=== PATIENT | female | born 2005 | race Caucasian/White ===

== ENCOUNTER 2024-06-13 00:29 | Emergency (ER) | payer OTHER ==
[2024-06-13] MEDS ORDERED: Lidocaine 1% (PF) 30 ML VIAL ONE (01:10)
[2024-06-13] MEDS ORDERED: Bacitracin 1 PK ONE (01:11)
[2024-06-13] MEDS ORDERED: Lidocaine/Transparent Dressing 1 EACH KIT ONE (02:23)
[2024-06-13] MEDS ORDERED: diphenhydrAMINE 25 MG CAP ONE (03:02)
[2024-06-13] MEDS ORDERED: Sulfameth/Trimethoprim DS 800-160mg TAB ONE (04:10)
[2024-06-13] MEDS ORDERED: Amoxicillin/Potassium Clav 875 MG TAB ONE (04:12)
== END 2024-06-13 04:30 | disposition home or self-care (01) ==
LOC: CSHERS 00:29
DX: S01.551A Open bite of lip, initial encounter (principal); S01.25XA Open bite of nose, initial encounter; W54.0XXA Bitten by dog, initial encounter
CPT/HCPCS: 12011; 99283

== ENCOUNTER 2025-02-13 17:30 | Inpatient (IN) | payer OTHER ==
[2025-02-13] MEDS ORDERED: Ondansetron PF 4 MG/2 ML Vial ONE (17:52)
[2025-02-13 18:22] LABS: #Basophils 0.06 10x3/uL (0.0-0.2); #Eosinophils 0.04 10x3/uL (0.0-0.5); #Monocytes 0.90 10x3/uL (0.0-1.1); #Neutrophils 6.25 10x3/uL (1.5-8.4); %Basophils 0.6 % (0.0-2.0); %Eosinophils 0.4 % (0.0-6.0); %Lymphocytes 26.2 % (18.0-47.0); %Monocytes 9.1 % (0.0-10.0); %Neutrophils 63.2 % (40.0-75.0); Hematocrit 35.9 % (34.9-44.5); Hemoglobin 11.3 g/dL (12.0-15.5); Mean Corpuscular Hemoglobin 24.7 pg (27.0-33.0); Mean Corpuscular Volume 78.4 fL (81.6-98.3); Platelet Count 486 10x3/uL (150-450); Red Blood Cell (RBC) Count 4.58 10x6/uL (3.90-5.03); White Blood Cell (WBC) Count 9.89 10x3/uL (3.5-10.5)
[2025-02-13 18:30] LABS: ALT (SGPT) 12 U/L (Less than 34); AST (SGOT) 17 U/L (11-34); Albumin 4.1 g/dL (3.1-4.5); Alkaline Phosphatase 77 U/L (40-100); Anion Gap 21 mmol/L (10-20); BUN (Urea Nitrogen) 11 mg/dL (7.0-18.7); Bilirubin, Total 1.2 mg/dL (0.3-1.2); Calc. Creatinine Clearance 0 mL/min (70-130); Calcium 9.0 mg/dL (7.8-10.44); Carbon Dioxide 15 mmol/L (22-29); Chloride 107 mmol/L (98-107); Globulin 3.7 g/dL (2.4-3.5); Glucose 120 mg/dL (70-105); Potassium 3.3 mmol/L (3.5-5.1); Sodium 140 mmol/L (136-145)
[2025-02-13 18:31] LABS: Acetaminophen 118 mcg/mL (Less than 10); Lipase 26 U/L (8-78); Magnesium 1.7 mg/dL (1.7-2.2); Salicylate Less than 8.0 mg/dL (Less than 8.0)
[2025-02-13 18:57] LABS: Cocaine Metabolite Screen Negative (Negative); Glucose, Urine (Dipstick) Negative (Negative); Leukocyte Negative (Negative); Protein, Urine (Dipstick) 30 mg/dL (Neg-Trace); Specific Gravity, Urine 1.020 (1.005-1.030); THC/Cannabinoid Screen Negative (Negative); Tricyclic Screen Negative (Negative)
[2025-02-13 19:04] LABS: CAUTI Indications for Culture Pelvic or flank pain; RBC/HPF 0-3 HPF (0-3); WBC/HPF 0-3 HPF (0-3)
[2025-02-13 19:05] LABS: Bacteria/HPF 2+ HPF (None Seen); Mucous/LPF 1+ LPF (<2+)
[2025-02-13 19:07] LABS: Urine Culture Reflex No No
[2025-02-13] MEDS ORDERED: Acetylcysteine 20% 200 MG/ML 30 ML VIAL ONE ×2 (19:20→19:21)
[2025-02-13 19:35] LABS: INR-International Normal Ratio 1.0; Prothrombin Time 11.4 sec (9.5-12.1)
[2025-02-13 19:42] LABS: PTT 21.3 sec (22.0-33.0)
[2025-02-13 19:50] LABS: Actual Bicarbonate (HCO3v) 18.2 mEq/L (22-28); Analyzer IN Cardio CS ER; Base Excess -5.9 mEq/L (-2 - +2); Calcium, Ionized (venous) 1.09 mmol/L (1.16-1.32); Chloride (VBG) 106 mmol/L (98-106); Critical Notified By: CP.PH; Hematocrit-VBG 36 % (36.0-47.0); Hemoglobin (Hb) 12.3 g/dL (11.7-15.5); Potassium (VBG) 3.76 mmol/L (3.70-5.30); Puncture Site Other Site; RapidComm Collect By LAB.CMJ; Sodium 141 mmol/L (133-146)
[2025-02-13] MEDS ORDERED: Calcium Carbonate 500 MG ChewTAB PO PRN (19:55)
[2025-02-13] MEDS ORDERED: Senokot S 8.6-50 MG TAB PO PRN (19:55)
[2025-02-13] MEDS ORDERED: Guaifenesin DM 100-10/5 ML UDCUP PO PRN (19:55)
[2025-02-13 20:21] LABS: Acetaminophen 119 mcg/mL (Less than 10)
[2025-02-13 20:40] LABS: Pregnancy Test - Urine (BHCG) Negative (Negative); Pregu Control Background? CLEAR/WHITE (CLR/WHITE); Pregu Control Bar Appear? YES (CONTROL BAR)
[2025-02-13 21:09] VITALS: BMI 29.7
[2025-02-13] MEDS: Acetylcysteine 20% (200mg/mL) 12,000 MG in Dextrose 5% in Water 200 ML IV SCH (21:10)
[2025-02-13] MEDS: Ondansetron PF 4 MG/2 ML Vial IVP PRN (22:00)
[2025-02-13] MEDS: Famotidine/PF 20 mg/2ml Vial SLOW IVP SCH (22:00)
[2025-02-13] MEDS: Magnesium 2 GM/50 ML(in water) 2 GM in Premix 1 BAG IVPB SCH (22:01)
[2025-02-13] MEDS: Melatonin 3 MG TAB PO PRN (22:02)
[2025-02-13] MEDS: Acetylcysteine 20% (200mg/mL) 3,800 MG in Dextrose 5% in Water 500 ML IV SCH (23:00)
[2025-02-13 23:01] LABS: ALT (SGPT) 10 U/L (Less than 34); AST (SGOT) 17 U/L (11-34); Acetaminophen 70 mcg/mL (Less than 10); Albumin 3.7 g/dL (3.1-4.5); Alkaline Phosphatase 58 U/L (40-100); Anion Gap 8 mmol/L (10-20); BUN (Urea Nitrogen) 9 mg/dL (7.0-18.7); Bilirubin, Total 0.7 mg/dL (0.3-1.2); Calc. Creatinine Clearance 177 mL/min (70-130); Calcium 7.8 mg/dL (7.8-10.44); Carbon Dioxide 18 mmol/L (22-29); Chloride 116 mmol/L (98-107); Globulin 3.3 g/dL (2.4-3.5); Glucose 125 mg/dL (70-105); Magnesium 1.6 mg/dL (1.7-2.2); Potassium 4.0 mmol/L (3.5-5.1); Sodium 138 mmol/L (136-145)
[2025-02-14] MEDS: Acetylcysteine 20% (200mg/mL) 7,600 MG in Dextrose 5% in Water 1,000 ML IV SCH (03:00)
[2025-02-14 05:01] LABS: #Basophils 0.03 10x3/uL (0.0-0.2); #Eosinophils Less than 0.03 10x3/uL (0.0-0.5); #Monocytes 0.80 10x3/uL (0.0-1.1); #Neutrophils 5.50 10x3/uL (1.5-8.4); %Basophils 0.4 % (0.0-2.0); %Eosinophils 0.2 % (0.0-6.0); %Lymphocytes 24.5 % (18.0-47.0); %Monocytes 9.4 % (0.0-10.0); %Neutrophils 64.8 % (40.0-75.0); Hematocrit 34.1 % (34.9-44.5); Hemoglobin 10.5 g/dL (12.0-15.5); Mean Corpuscular Hemoglobin 24.4 pg (27.0-33.0); Mean Corpuscular Volume 79.1 fL (81.6-98.3); Platelet Count 381 10x3/uL (150-450); Red Blood Cell (RBC) Count 4.31 10x6/uL (3.90-5.03); White Blood Cell (WBC) Count 8.49 10x3/uL (3.5-10.5)
[2025-02-14 05:17] LABS: INR-International Normal Ratio 1.1; PTT 25.0 sec (22.0-33.0); Prothrombin Time 12.4 sec (9.5-12.1)
[2025-02-14 05:22] LABS: ALT (SGPT) 9 U/L (Less than 34); AST (SGOT) 15 U/L (11-34); Acetaminophen 12 mcg/mL (Less than 10); Albumin 3.3 g/dL (3.1-4.5); Alkaline Phosphatase 51 U/L (40-100); Anion Gap 11 mmol/L (10-20); BUN (Urea Nitrogen) 6 mg/dL (7.0-18.7); Bilirubin, Total 0.9 mg/dL (0.3-1.2); CK (CPK) 87 U/L (29-168); Calc. Creatinine Clearance 180 mL/min (70-130); Calcium 7.8 mg/dL (7.8-10.44); Carbon Dioxide 19 mmol/L (22-29); Chloride 109 mmol/L (98-107); Globulin 3.1 g/dL (2.4-3.5); Glucose 126 mg/dL (70-105); Magnesium 2.4 mg/dL (1.7-2.2); Potassium 3.6 mmol/L (3.5-5.1); Sodium 135 mmol/L (136-145)
[2025-02-14] MEDS: Potassium Phosphate 30 MMOL in Sodium Chloride 0.9% 250 ML 250 ML IVPB SCH (08:41)
[2025-02-14] MEDS: Folic Acid 1 MG TAB PO SCH (08:41)
[2025-02-14 16:57] LABS: PT - Undiluted 15.7 sec (12.0-14.7)
[2025-02-14 16:58] LABS: PT 1:1 37C-90 min. Incubation 20.0 sec (12.0-14.7); PTT - Undiluted 28.7 sec (22.9-36.1); PTT 1:1 37C/90 MIN Incubation 38.6 sec (22.9-36.1)
[2025-02-14 19:05] LABS: INR-International Normal Ratio 1.1; Prothrombin Time 11.9 sec (9.5-12.1)
[2025-02-14 19:07] LABS: ALT (SGPT) 8 U/L (Less than 34); AST (SGOT) 17 U/L (11-34); Acetaminophen Less than 10 mcg/mL (Less than 10)
[2025-02-15 06:20] LABS: ALT (SGPT) 8 U/L (Less than 34); AST (SGOT) 12 U/L (11-34); Albumin 3.7 g/dL (3.1-4.5); Alkaline Phosphatase 69 U/L (40-100); Anion Gap 10 mmol/L (10-20); BUN (Urea Nitrogen) 8 mg/dL (7.0-18.7); Bilirubin, Total 0.6 mg/dL (0.3-1.2); Calc. Creatinine Clearance 151 mL/min (70-130); Calcium 8.6 mg/dL (7.8-10.44); Carbon Dioxide 23 mmol/L (22-29); Chloride 109 mmol/L (98-107); Globulin 3.2 g/dL (2.4-3.5); Glucose 95 mg/dL (70-105); Potassium 3.7 mmol/L (3.5-5.1); Sodium 138 mmol/L (136-145)
[2025-02-15 08:12] VITALS: BP 114/69; TEMP 98.5
== END 2025-02-15 09:35 | disposition home or self-care (01) | DRG 918 ==
LOC: CSHERS 17:30 → CSHTELE 19:55
PROVIDERS: ADMIT Student in an Organized Health Care Education/Training Program; ATTEND Student in an Organized Health Care Education/Training Program
DX: T39.1X1A Poisoning by 4-Aminophenol derivatives, accidental (unintentional), initial encounter (principal); E87.20 Acidosis, unspecified; E87.6 Hypokalemia; F10.10 Alcohol abuse, uncomplicated; F90.9 Attention-deficit hyperactivity disorder, unspecified type; Z79.899 Other long term (current) drug therapy
CPT/HCPCS: 36415; 36416; 80053; 80143; 80306; 80307; 81001; 81025; 82550; 82805; 83605; 83690; 83735; 84100; 84450; 84460; 85025; 85610; 85611; 85730; 85732; 93005; 96374; J0132; J2550; J3411; J3475; J7042; J7050; J7070